=== PATIENT | male | born 1960 | race Caucasian/White ===

== ENCOUNTER → 2018-11-05 | Outpatient (CLI) | payer OTHER | LOC: CAT 10:16 | DX: Z13.6 Encounter for screening for cardiovascular disorders (principal); E78.00 Pure hypercholesterolemia, unspecified ==

== ENCOUNTER → 2019-09-12 | Outpatient (CLI) | payer OTHER | LOC: CAT 15:17 | DX: M20.092 Other deformity of left finger(s) (principal); M21.832 Other specified acquired deformities of left forearm ==